=== PATIENT | male | born 1970 | race Caucasian/White ===

== ENCOUNTER 2019-08-07 21:06 | Emergency (ER) | payer OTHER ==
[~2019-08-07] VITALS: Ht 172.7 cm; Wt 83.5 kg
--- NOTE | 2019-08-07 21:38 | NUR ---
PT C/O HBP EITH HX OF SAME BUT HAS NOT BEEN TO MD TO START HBP MEDS. PT REPORTED YI EALRIER TODAY BUT HAS RESOLVED. PT DENIES NAUSEA OR VISION CHANGES. LABS AND CXR TO BE DONE.
--- NOTE | 2019-08-07 22:01 | NUR ---
PT RESTING IN BED, BP 157/95.
[2019-08-07 22:03] LABS: BASOPHILS # (AUTO) 0.03 x10^3/uL (0-0.1); BASOPHILS % (AUTO) 0 % (0-1); EOSINOPHILS # (AUTO) 0.26 x10^3/uL (0-0.4); EOSINOPHILS % (AUTO) 4 % (1-7); LYMPHOCYTES # (AUTO) 2.17 x10^3/uL (1-3.4); LYMPHOCYTES % (AUTO) 30 % (22-44); MD NO; MEAN CORPUSCULAR HGB CONC 34.1 g/dL (33.2-36.2); MEAN CORPUSCULAR VOLUME 93.9 fL (81-97); MEAN PLATELET VOLUME 8.7 fL (7.4-10.4); MONOCYTES # (AUTO) 0.57 x10^3/uL (0.2-0.8); MONOCYTES % (AUTO) 8 % (2-9); NEUTROPHILS # (AUTO) 4.34 x10^3/uL (1.8-6.8); NEUTROPHILS % (AUTO) 59 % (42-75); PLATELET COUNT 228 x10^3/uL (130-400); RED BLOOD COUNT 5.74 x10^6/uL (4.38-5.82); RED CELL DISTRIBUTION WIDTH 13.4 % (9.4-14.8)
--- NOTE | 2019-08-07 22:04 | NUR ---
REPORT TO ROXANNE DOTSON.
[2019-08-07 22:13] LABS: ALBUMIN 4.4 g/dL (3.4-5.0); ANION GAP 4 mmol/L (5-15); CALCIUM 9.3 mg/dL (8.5-10.1); CHLORIDE 109 mmol/L (98-107)
--- NOTE | 2019-08-07 22:17 | NUR ---
REPORT FROM MAURI BISHOP. PT SITTNG UP IN [place] [facility] NOTED. PT DENIES CP/YI/DIZZINESS AT THIS TIME. AWAITING LAB RESULTS.
[2019-08-07 22:18] LABS: CREATININE 0.99 mg/dL (0.7-1.3); TROPONIN I < 0.015 ng/mL (0.000-0.045)
[2019-08-07 22:52] VITALS: BP 142/84
--- NOTE | 2019-08-07 23:00 | NUR ---
DC EDUCATION PROVIDED, PT DEMONSTRATES UNDERSTANDNG. PT AMBULATED STEADILY TO DC WITH RN
== END 2019-08-07 23:02 | disposition home or self-care (01) ==
LOC: ED 21:34
DX: I10 Essential (primary) hypertension (principal)
CPT/HCPCS: 36415; 71045; 80048; 82040; 84484; 85025; 93005; 99284

== ENCOUNTER 2019-12-11 17:29 | Emergency (ER) | payer OTHER ==
[~2019-12-11] VITALS: Ht 172.7 cm; Wt 82.7 kg
[2019-12-11] MEDS ORDERED: LISI-167 PO (18:08)
--- NOTE | 2019-12-11 18:08 | NUR ---
PT CAME IN BECAUSE HE HAS BEEN HAVING HIGH BP WHEN HE HAS BEEN MONITORING IT AT HOME. PT SAYS "WHEN THE BP GETS HIGHER, INTO THE 160S, THERE IS A SHARP CHEST PAIN ASSOCIATED". PT STARTED TAKING LISINOPRIL ON SATURDAY AND HE SAYS AT FIRST HIS BP DROPPED BUT SINCE SAT IT HASNT GONE DOWN. 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 EKG COMPLETE.
[2019-12-11 18:32] LABS: BASOPHILS # (AUTO) 0.02 x10^3/uL (0-0.1); BASOPHILS % (AUTO) 0 % (0-1); EOSINOPHILS # (AUTO) 0.07 x10^3/uL (0-0.4); EOSINOPHILS % (AUTO) 1 % (1-7); LYMPHOCYTES # (AUTO) 1.79 x10^3/uL (1-3.4); LYMPHOCYTES % (AUTO) 25 % (22-44); MD NO; MEAN CORPUSCULAR HEMOGLOBIN 31.6 pg (27.5-34.5); MEAN CORPUSCULAR HGB CONC 34.9 g/dL (33.2-36.2); MEAN CORPUSCULAR VOLUME 90.6 fL (81-97); MEAN PLATELET VOLUME 8.8 fL (7.4-10.4); MONOCYTES # (AUTO) 0.44 x10^3/uL (0.2-0.8); MONOCYTES % (AUTO) 6 % (2-9); NEUTROPHILS % (AUTO) 68 % (42-75); PLATELET COUNT 204 x10^3/uL (130-400); RED BLOOD COUNT 5.19 x10^6/uL (4.38-5.82)
[2019-12-11 18:39] LABS: ALBUMIN 4.2 g/dL (3.4-5.0); ANION GAP 2 mmol/L (5-15); CALCIUM 9.1 mg/dL (8.5-10.1); CHLORIDE 109 mmol/L (98-107); CREATININE 0.98 mg/dL (0.7-1.3)
[2019-12-11 18:42] LABS: TROPONIN I < 0.015 ng/mL (0.000-0.045)
--- NOTE | 2019-12-11 18:49 | NUR ---
ALL RESULTS ARE BACK AT THIS TIME. CHART UP FOR RECHECK.
[2019-12-11 18:58] VITALS: BP 154/96
== END 2019-12-11 19:43 | disposition home or self-care (01) ==
LOC: ED 18:14
DX: R07.9 Chest pain, unspecified (principal); I10 Essential (primary) hypertension; R00.0 Tachycardia, unspecified
CPT/HCPCS: 36415; 71045; 80048; 82040; 84484; 85025; 93005; 99285

== ENCOUNTER 2020-08-25 10:33 | Emergency (ER) | payer OTHER ==
[~2020-08-25] VITALS: Ht 172.7 cm; Wt 76.0 kg
[~2020-08-25 10:33] MED LIST: LISI-167 PO
--- NOTE | 2020-08-25 10:44 | NUR ---
TRIAGE: PATIENT HAS NO CHEST PAIN. REPORTS 3 DAYS OF HTN AND HAS BEEN DOUBLING UP HIS LISINOPRIL BUT BP STILL HIGH. 2 MONTHS AGO S1 MICRODISCECTOMY
[2020-08-25] MEDS ORDERED: OMEP-110 PO (12:02)
[2020-08-25 13:13] LABS: ANION GAP 4 mmol/L (5-15); CALCIUM 9.8 mg/dL (8.5-10.1); CHLORIDE 110 mmol/L (98-107); CREATININE 0.92 mg/dL (0.7-1.3)
--- NOTE | 2020-08-25 13:27 | NUR ---
ALL RESULTS ARE BACK AT THIS TIME. CHART UP FOR RECHECK.
[2020-08-25] MEDS ORDERED: HYDROcodone/APAP 5/325 TABLET PO ONE (13:30)
[2020-08-25] MEDS ORDERED: IBUPROFEN 600 MG TABLET PO ONE (13:30)
[2020-08-25] MEDS ORDERED: IBUPROFEN 600 MG TABLET ONE (13:58)
[2020-08-25] MEDS ORDERED: HYDROcodone/APAP 5/325 TABLET ONE (13:58)
[2020-08-25 14:04] VITALS: BP 136/80
--- NOTE | 2020-08-25 14:04 | NUR ---
MEDS ADMIN PER NOV.
== END 2020-08-25 14:41 | disposition home or self-care (01) ==
LOC: ED 14:39
DX: I10 Essential (primary) hypertension (principal); R11.0 Nausea; R51.9 Headache, unspecified
CPT/HCPCS: 36415; 80048; 93005; 99284

== ENCOUNTER 2021-05-29 14:22 | Outpatient (CLI) | payer OTHER ==
[~2021-05-29 14:22] MED LIST changes: +OMEP-110 PO
[2021-05-29 14:52] LABS: % IRON SATURATION 47 % (20-55); ALANINE AMINOTRANSFERASE 50 U/L (12-78); ALBUMIN 4.3 g/dL (3.4-5.0); ANION GAP 7 mmol/L (5-15); CALCIUM 8.7 mg/dL (8.5-10.1); CHLORIDE 107 mmol/L (98-107); CREATININE 0.81 mg/dL (0.7-1.3); IRON LEVEL 125 mcg/dL (65-175); TOTAL IRON BINDING CAPACITY 266 mcg/dL (250-450)
[2021-05-29 14:54] LABS: ALKALINE PHOSPHATASE 93 U/L (45-117); BASOPHILS % (AUTO) 1 % (0-1); BILIRUBIN,TOTAL 0.6 mg/dL (0.2-1.0); EOSINOPHILS % (AUTO) 5 % (1-7); LYMPHOCYTES % (AUTO) 36 % (22-44); MEAN CORPUSCULAR HEMOGLOBIN 30.3 pg (27.5-34.5); MEAN CORPUSCULAR HGB CONC 35.2 g/dL (33.2-36.2); MONOCYTES % (AUTO) 8 % (2-9); NEUTROPHILS % (AUTO) 50 % (42-75); PLATELET COUNT 245 x10^3/uL (130-400); RED BLOOD COUNT 5.52 x10^6/uL (4.38-5.82); RED CELL DISTRIBUTION WIDTH 12.9 % (9.4-14.8); TOTAL PROTEIN 7.3 g/dL (6.4-8.2)
[2021-05-30 09:15] LABS: CRYPTOSPORIDIUM ANTIGEN Negative (Negative)
[2021-05-30 09:20] LABS: CLOSTRIDIUM DIFFICILE ANTIGEN NEGATIVE; CLOSTRIDIUM DIFFICILE TOXIN NEGATIVE (Negative)
== END 2021-05-29 23:59 | disposition home or self-care (01) ==
LOC: LAB 14:22
PROVIDERS: ATTEND Physician Assistant
DX: K64.4 Residual hemorrhoidal skin tags (principal); R19.7 Diarrhea, unspecified
CPT/HCPCS: 36415; 80053; 82274; 82728; 83540; 83550; 85025; 87046; 87324; 87328; 87329; 87427